=== PATIENT | female | born 1995 | race Caucasian/White ===

== ENCOUNTER 2019-04-30 14:12 | Emergency (ER) | payer OTHER ==
[2019-04-30] MEDS ORDERED: Prochlorperazine 10 MG/2 ML SDV IVPUSH ONE (14:37)
[2019-04-30] MEDS ORDERED: Ketorolac 30 MG/ML SDV IVPUSH ONE (14:37)
[2019-04-30] MEDS ORDERED: diphenhydrAMINE 50 MG/ML SDV IVPUSH ONE (14:37)
[2019-04-30] MEDS ORDERED: Sodium Chloride 0.9% 10 ML Syringe FLUSH PRN (14:37)
--- NOTE | 2019-04-30 15:17 | EDM.PDOC ---
ED HPI GENERAL MEDICAL PROBLEM - General Chief Complaint: Headache Stated Complaint: MIGRAINE Time Seen by Provider: 04/30/19 14:24 Source of Information: Reports: Patient History Limitations: Reports: No Limitations - History of Present Illness INITIAL COMMENTS - FREE TEXT/NARRATIVE: The patient presents with a headache. She has a history of migraines. She has nausea but no vomiting. She has no numbness or weakness. Onset: Gradual Duration: Day(s): (Last night) Location: Reports: Head Quality: Reports: Ache Severity: Severe Improves with: Reports: None Worsens with: Reports: None Associated Symptoms: Reports: Headaches, Nausea/Vomiting Head Pain Score (Numeric/FACES): 7 - Related Data Allergies Allergy/AdvReac Type Severity Reaction Status Date / Time amoxicillin Allergy Hives Verified 04/30/19 14:27 cefuroxime [From Ceftin] Allergy Hives Verified 04/30/19 14:27 Home Meds: Home Meds Acetaminophen/Caffeine [Excedrin Tension Headache Cplt] 1 each PO DAILY PRN [History] FLUoxetine [PROzac] 20 mg PO DAILY 03/26/19 [History] Fexofenadine [[place]] 0 mg PO DAILY 03/26/19 [History] Topiramate [Topamax] 50 mg PO DAILY 03/26/19 [History] Past Medical History Cardiovascular History: Reports: None Respiratory History: Reports: Asthma Gastrointestinal History: Reports: None Genitourinary History: Reports: None [employer] History: Reports: None Musculoskeletal History: Reports: None Neurological History: Reports: None Psychiatric History: Reports: None Endocrine/Metabolic History: Reports: None Hematologic History: Reports: None Immunologic History: Reports: None Oncologic (Cancer) History: Reports: None Dermatologic History: Reports: None - Infectious Disease History Infectious Disease History: Reports: None - Past Surgical History Head Surgeries/Procedures: Reports: None HEENT Surgical History: Reports: Oral Surgery Social & Family History - Tobacco Use Smoking Status *Q: Never Smoker Second Hand Smoke Exposure: No - Caffeine Use Caffeine Use: Reports: None - Recreational Drug Use Recreational Drug Use: No ED ROS GENERAL - Review of Systems Review Of Systems: See Below Constitutional: Reports: No Symptoms HEENT: Reports: No Symptoms Respiratory: Reports: No Symptoms Cardiovascular: Reports: No Symptoms Endocrine: Reports: No Symptoms GI/Abdominal: Reports: Nausea. Denies: Abdominal Pain, Vomiting Neurological: Reports: Headache - Physical Exam Exam: See Below Exam Limited By: No Limitations General Appearance: Alert, No Apparent Distress Ears: Normal External Exam Nose: Normal Inspection Head Exam: Atraumatic, Normocephalic Neck: Normal Inspection Respiratory/Chest: No Respiratory Distress, Lungs Clear, Normal Breath Sounds Cardiovascular: Regular Rate, Rhythm, No Edema, No Murmur GI/Abdominal: Soft, Non-Tender, No Organomegaly, No Mass Neuro Exam (Abbreviated): Alert, Oriented, No Motor/Sensory Deficits Course - Vital Signs Last Recorded V/S: Last Vital Signs Temp 97.4 F 04/30/19 14:23 Pulse 77 04/30/19 14:23 Resp 13 04/30/19 14:23 BP 137/99 H 04/30/19 14:23 Pulse Ox 100 04/30/19 14:23 - Orders/Labs/Meds Orders: Active Orders 24 hr Category Date Time Status Peripheral IV Care [RC] . DIRECTED Care 04/30/19 14:37 Active Sodium Chloride 0.9% [Saline Flush] Med 04/30/19 14:37 Active 10 ml FLUSH ASDIRECTED PRN Peripheral IV Insertion Adult [OM.PC] Routine Oth 04/30/19 14:37 Ordered Medication Orders Sodium Chloride (Saline Flush) 10 ml FLUSH ASDIRECTED PRN PRN Reason: Keep Vein Open Last Admin: 04/30/19 14:49 Dose: 10 ml Meds: Medications Generic Name Dose Route Start Last Admin Trade Name Freq PRN Reason Stop Dose Admin Sodium Chloride 10 ml 04/30/19 14:37 04/30/19 14:49 Saline Flush FLUSH 10 ml ASDIRECTED PRN Administration Keep Vein Open Discontinued Medications Generic Name Dose Route Start Last Admin Trade Name Freq PRN Reason Stop Dose Admin Diphenhydramine HCl 50 mg 04/30/19 14:37 04/30/19 14:48 Benadryl IVPUSH 04/30/19 14:38 50 mg ONETIME ONE Administration Ketorolac Tromethamine 30 mg 04/30/19 14:37 04/30/19 14:47 Toradol IVPUSH 04/30/19 14:38 30 mg ONETIME ONE Administration Prochlorperazine Edisylate 10 mg 04/30/19 14:37 04/30/19 14:46 Compazine IVPUSH 04/30/19 14:38 10 mg ONETIME ONE Administration - Re-Assessments/Exams Free Text/Narrative Re-Assessment/Exam: 04/30/19 15:27 I ordered an IV saline lock, compazine 10mg IV, toradol 30mg IV, and benadryl 50mg IV. Departure - Departure Time of Disposition: 15:30 Disposition: Home, Self-Care 01 Condition: Good Clinical Impression: Migraine - Discharge Information *PRESCRIPTION DRUG MONITORING PROGRAM REVIEWED*: No *COPY OF PRESCRIPTION DRUG MONITORING REPORT IN PATIENT NATALIA: No Referrals: Tamela Lebron MD [Primary Care Provider] - Forms: ED Department Discharge Additional Instructions: Go home and rest. Please return if you are worse. - My Orders Last 24 Hours: My Active Orders 04/30/19 14:37 Peripheral IV Care [RC] . DIRECTED Sodium Chloride 0.9% [Saline Flush] 10 ml FLUSH ASDIRECTED PRN Peripheral IV Insertion Adult [OM.PC] Routine - Assessment/Plan Last 24 Hours: My Active Orders 04/30/19 14:37 Peripheral IV Care [RC] . DIRECTED Sodium Chloride 0.9% [Saline Flush] 10 ml FLUSH ASDIRECTED PRN Peripheral IV Insertion Adult [OM.PC] Routine
== END 2019-04-30 15:37 | disposition home or self-care (01) ==
LOC: JD.ED 14:12
DX: G43.909 Migraine, unspecified, not intractable, without status migrainosus (principal); Z88.1 Allergy status to other antibiotic agents; Z79.899 Other long term (current) drug therapy
CPT/HCPCS: 96374; 96375; 99283; J0780; J1200; J1885

== ENCOUNTER 2022-04-25 09:20 | Emergency (ER) | payer OTHER, BC | END 2022-04-25 15:25 | disposition home or self-care (01) | LOC: JD.ED 09:20 | DX: R20.2 Paresthesia of skin (principal); J45.909 Unspecified asthma, uncomplicated; Z88.0 Allergy status to penicillin; Z88.1 Allergy status to other antibiotic agents; Z79.899 Other long term (current) drug therapy | CPT/HCPCS: 36415; 70551; 70551-26; 80053; 80306; 81003; 83735; 85025; 99283; 99284 ==

== ENCOUNTER 2022-05-12 04:03 | Emergency (ER) | payer BC, OTHER ==
[2022-05-12] MEDS ORDERED: LORazepam 2 MG/ML SDV ONE (04:22)
[2022-05-12] MEDS ORDERED: LORazepam 2 MG/ML SDV IV ONE (04:32)
[2022-05-12] MEDS ORDERED: Sodium Chloride 0.9% 1,000 ML ONE (04:50)
[2022-05-12] MEDS ORDERED: Sodium Chloride 0.9% 1,000 ML IV ONE (05:03)
[2022-05-12 05:59] LABS: ESTIMATED GFR 90 mL/min (>60)
[2022-05-12] MEDS ORDERED: diphenhydrAMINE 50 MG/ML SDV ONE (06:49)
[2022-05-12] MEDS ORDERED: Metoclopramide 10 MG/2 ML SDV ONE (06:49)
[2022-05-12] MEDS ORDERED: diphenhydrAMINE 50 MG/ML SDV IV ONE (06:51)
[2022-05-12] MEDS ORDERED: Metoclopramide 10 MG/2 ML SDV IV ONE (06:54)
[2022-05-12] MEDS ORDERED: LORazepam 1 MG Tab PO ONE (08:44)
[2022-05-12] MEDS ORDERED: LORazepam 1 MG Tab ONE (08:47)
== END 2022-05-12 09:05 ==
LOC: JD.ED 04:03
DX: G43.909 Migraine, unspecified, not intractable, without status migrainosus (principal)
CPT/HCPCS: 36415; 80048; 80306; 80307; 81003; 81025; 85025; 85652; 86140; 96361; 96374; 96375; 99284; A9270; J1200; J2060; J2765; J7030; 99282